=== PATIENT | female | born 1995 | race African-American/Black ===

== ENCOUNTER 2022-07-30 15:22 | Inpatient (IN) | payer OTHER, SELFPAY ==
--- NOTE | ~2022-07-30 | XR_ITS ---
EXAMINATION: XR HAND, RIGHT CLINICAL INFORMATION: Trauma to right hand COMPARISON: None available. TECHNIQUE: PA, lateral, and oblique views of the right hand. FINDINGS: The bones and soft tissues are normal. No fracture. Alignment is anatomic. Joint spaces are maintained. No erosions or soft tissue calcifications. XR/XR hand RT 2V IMPRESSION: Unremarkable right hand.
[2022-07-30 15:35] VITALS: BP 140/90; PULSE 110
[2022-07-30 15:42] VITALS: BP 116/83; PULSE 108; RESP 19; TEMP 36.8; O2SAT 98; BMI 19.5
[2022-07-30 16:14] LABS: Appearance Urine Cloudy; Color Urine Yellow; Glucose Urine UA Negative (Negative); Leukocyte Esterase Urine Negative (Negative); Nitrite Urine Negative (Negative); PH 5.5 (5.0-9.0); Specific Gravity - Urine >= 1.030 (1.005-1.025); Urine Blood Negative (Negative); Urine Ketones >=160 mg/dL (Negative); Urine Protein Trace mg/dL (Neg-Trace)
[2022-07-30 16:15] LABS: UPreg QC Valid YES; Urine Pregnancy NEGATIVE (NEGATIVE)
[2022-07-30 16:18] LABS: MANUAL DIFF FLAG NO
[2022-07-30 16:21] LABS: COVID-19 Test Negative (Negative); IDNOW Serial# BCCEAD1C
[2022-07-30 16:22] LABS: Basophils Percent Auto 0.4 % (0-2); Eosinophils Percent Auto 0.3 % (0-4); Hematocrit 39.9 % (37.0-47.0); Hemoglobin 12.8 g/dl (12.0-16.0); Imm Gran Abs Auto 0.01 X10*3/uL (0.00-0.03); Imm Gran Pct Auto 0.1 % (0.0-0.4); Lymphocytes Absolute Auto 2.6 X10*3/uL (1.2-4.9); Lymphocytes Percent Auto 36.2 % (20-40); Mean Corpuscular HGB Conc 32.1 g/dl (31.0-35.0); Mean Corpuscular Volume 78.1 fL (80.0-98.0); Mean Platelet Volume 9.7 fL (9.4-12.3); Monocytes Absolute Auto 0.6 X10*3/uL (0.1-1.2); Neutrophils Absolute Auto 3.9 x10*3/uL (2.0-8.3); Platelet Count 431 X10*3/uL (160-400); Red Blood Count 5.11 X10*6/uL (4.20-5.50); Red Cell Distribution Width 13.5 % (11.0-16.0); White Blood Count 7.1 X10*3/uL (4.8-10.8)
--- NOTE | 2022-07-30 16:22 | ED.PSYCH ---
HPI - Psych General Chief Complaint: Psychiatric Symptoms Stated Complaint: SI W/PLAN,SECTION 12 Time Seen by Provider: 07/30/22 16:20 Source: patient Mode of arrival: EMS Limitations: no limitations History of Present Illness HPI Narrative: Patient 26 yrs old with history of anxiety and depression seen outpatient clinic for SI section 12 now here for bed search patient quit her job said she would shoot herself or take a bunch of pills patient has a gun at home. history of depression anxiety but not taking any medication patient feel more depressed lately for last few months because of increased stress and separation from her son 7 years old, who lives in [place] Related Data Home Medications Medication Instructions Recorded Confirmed No Known Home Meds 07/30/22 07/30/22 Allergies Allergy/AdvReac Type Severity Reaction Status Date / Time No Known Allergies Allergy Verified 07/30/22 16:30 Review of Systems Review of Systems: Yes all other systems are reviewed and are negative [facility] Social History Social History Advance Directives: No Advance Directives Information Provided: No Physical Exam Vital Signs: Vital Signs: Last Vital Signs Temp 98.2 F 07/30/22 15:42 Pulse 108 H 07/30/22 15:42 Resp 19 07/30/22 15:42 BP 116/83 07/30/22 15:42 Pulse Ox 98 07/30/22 15:42 O2 Del Method 07/30/22 15:42 BMI result Body Mass Index 19.5 Appearance: Alert. Oriented X3. No acute distress. Eyes: PERRLA, No Nystagmus ENT: Pharynx normal. Oral Mucosa moist Neck: Normal inspection. Neck supple. CVS: Normal heart rate and rhythm. Pulses normal. Respiratory: No respiratory distress. Equal air entry bilateral, no wheezing/rales/rhonchi Abdomen: Soft and nontender. Bowel sounds are present, no mass palpable, no CVA tenderness Skin: Skin warm and dry. Normal skin color. Normal skin turgor. Extremities: No lower extremity edema. No calf tenderness psych: Depressed with SI no hallucination or delusion Neuro: Oriented X 3. No motor deficit. No sensory deficit.No cerebellar signs , cranial nerves II-XII intact Medications Administered Discontinued Medications Generic Name Dose Route Start Last Admin Trade Name Freq PRN Reason Stop Dose Admin Diphenhydramine HCl 50 mg 07/30/22 20:27 07/30/22 20:39 Diphenhydramine Hcl 25 Mg Capsule PO 07/30/22 20:28 50 mg ONCE ONE Administration Medical Decision Making Medical Decision Making [facility] Narrative: Patient major depression with SI seen by outpatient and plan for inpatient placement. Lab workup showed severe ketonuria. Patient has been eating and drinking in the ER will reinforce her to eat more carbohydrates, recheck UA in a.m. again Lab Data [facility] Lab Attestation statement: I reviewed the patient's lab results. 07/30/22 16:12 07/30/22 16:13 Labs: Lab Results 07/30/22 07/30/22 07/30/22 Range/Units 16:00 16:00 16:00 WBC (4.8-10.8) X10*3/uL RBC (4.20-5.50) X10*6/uL Hgb (12.0-16.0) g/dl Hct (37.0-47.0) % MCV (80.0-98.0) fL MCH (27.0-33.0) pg MCHC (31.0-35.0) g/dl RDW (11.0-16.0) % Plt Count (160-400) X10*3/uL MPV (9.4-12.3) fL Immature Gran % (Auto) (0.0-0.4) % Neut % (Auto) (45-73) % Lymph % (Auto) (20-40) % Norman % (Auto) (2-11) % Eos % (Auto) (0-4) % Baso % (Auto) (0-2) % Lymph # (Auto) (1.2-4.9) X10*3/uL Norman # (Auto) (0.1-1.2) X10*3/uL Eos # (Auto) (0.0-0.4) X10*3/uL Baso # (Auto) (0.0-0.2) X10*3/uL Abs Immat Gran (auto) (0.00-0.03) X10*3/uL Absolute Neuts (auto) (2.0-8.3) x10*3/uL Absolute Nucleated RBC (0.0-0.012) X10*3/uL Nucleated RBC % (auto) (0.0-0.2) /100WBC Sodium (135-145) mmol/L Potassium (3.3-5.1) mmol/L Chloride (96-108) mmol/L Carbon Dioxide (22-29) mmol/L Anion Gap (12-20) BUN (9-16) mg/dL Creatinine (0.5-1.4) mg/dL Estim Creat Clear Calc Estimated GFR Random Glucose (60-115) mg/dL Calcium (8.4-10.2) mg/dL Total Bilirubin (0.0-1.0) mg/dL AST (5-31) U/L ALT (0-31) U/L Alkaline Phosphatase (39-117) U/L Total Protein (6.5-8.0) g/dL Albumin (3.5-5.0) g/dL Urine Color Yellow Urine Appearance Cloudy Urine pH 5.5 (5.0-9.0) Ur Specific [place] >= 1.030 H (1.005-1.025) Urine Protein Trace (Neg-Trace) mg/dL Urine Glucose (UA) Negative (Negative) mg/dL Urine Ketones >=160 (Negative) mg/dL Urine Blood Negative (Negative) Urine Nitrite Negative (Negative) Ur Leukocyte Esterase Negative (Negative) Urine Test NEGATIVE (NEGATIVE) Urine Opiates Screen (Not Detect) Urine Fentanyl Screen (Not Detect) Ur Barbiturates Screen (Not Detect) Ur Phencyclidine Scrn (Not Detect) Ur Amphetamines Screen (Not Detect) U Benzodiazepines Scrn (Not Detect) Urine Cocaine Screen (Not Detect) U Marijuana (THC) Screen (Not Detect) Ethyl Alcohol mg/dL COVID-19 (MARISA) Negative (Negative) COVID-19 Clin Com See Note 07/30/22 07/30/22 07/30/22 Range/Units 16:00 16:12 16:13 WBC 7.1 (4.8-10.8) X10*3/uL RBC 5.11 (4.20-5.50) X10*6/uL Hgb 12.8 (12.0-16.0) g/dl Hct 39.9 (37.0-47.0) % MCV 78.1 L (80.0-98.0) fL MCH 25.0 L (27.0-33.0) pg MCHC 32.1 (31.0-35.0) g/dl RDW 13.5 (11.0-16.0) % Plt Count 431 H (160-400) X10*3/uL MPV 9.7 (9.4-12.3) fL Immature Gran % (Auto) 0.1 (0.0-0.4) % Neut % (Auto) 55.0 (45-73) % Lymph % (Auto) 36.2 (20-40) % Norman % (Auto) 8.0 (2-11) % Eos % (Auto) 0.3 (0-4) % Baso % (Auto) 0.4 (0-2) % Lymph # (Auto) 2.6 (1.2-4.9) X10*3/uL Norman # (Auto) 0.6 (0.1-1.2) X10*3/uL Eos # (Auto) 0.0 (0.0-0.4) X10*3/uL Baso # (Auto) 0.0 (0.0-0.2) X10*3/uL Abs Immat Gran (auto) 0.01 (0.00-0.03) X10*3/uL Absolute Neuts (auto) 3.9 (2.0-8.3) x10*3/uL Absolute Nucleated RBC 0.000 (0.0-0.012) X10*3/uL Nucleated RBC % (auto) 0.0 (0.0-0.2) /100WBC Sodium 140 (135-145) mmol/L Potassium 3.9 (3.3-5.1) mmol/L Chloride 106 (96-108) mmol/L Carbon Dioxide 23 (22-29) mmol/L Anion Gap 15 (12-20) BUN 8 L (9-16) mg/dL Creatinine 0.80 (0.5-1.4) mg/dL Estim Creat Clear Calc 93.7 Estimated GFR > 60 Random Glucose 94 (60-115) mg/dL Calcium 9.5 (8.4-10.2) mg/dL Total Bilirubin 0.3 (0.0-1.0) mg/dL AST 13 (5-31) U/L ALT 7 (0-31) U/L Alkaline Phosphatase 80 (39-117) U/L Total Protein 7.1 (6.5-8.0) g/dL Albumin 4.3 (3.5-5.0) g/dL Urine Color Urine Appearance Urine pH (5.0-9.0) Ur Specific [place] (1.005-1.025) Urine Protein (Neg-Trace) mg/dL Urine Glucose (UA) (Negative) mg/dL Urine Ketones (Negative) mg/dL Urine Blood (Negative) Urine Nitrite (Negative) Ur Leukocyte Esterase (Negative) Urine Test (NEGATIVE) Urine Opiates Screen Not Detected (Not Detect) Urine Fentanyl Screen Not Detected (Not Detect) Ur Barbiturates Screen Not Detected (Not Detect) Ur Phencyclidine Scrn Not Detected (Not Detect) Ur Amphetamines Screen Not Detected (Not Detect) U Benzodiazepines Scrn Not Detected (Not Detect) Urine Cocaine Screen Not Detected (Not Detect) U Marijuana (THC) Screen POSITIVE H (Not Detect) Ethyl Alcohol < 10 mg/dL COVID-19 ([facility]) (Negative) COVID-19 Clin Com Discharge Plan Discharge Clinical Impression: Depression, Suicidal ideation Patient Disposition: Still a Patient Prescriptions: No Action No Known Home Meds Interventions: [place]-Suicide Risk Severity Scale Last Done: 07/30/22 23:41
[2022-07-30 16:27] LABS: Amphetamine Screen Urine Not Detected (Not Detect); Barbiturates, Urine Not Detected (Not Detect); Benzodiazepines Screen Urine Not Detected (Not Detect); Cannabinoid Screen Urine POSITIVE (Not Detect); Cocaine Screen Urine Not Detected (Not Detect); Fentanyl, urine Not Detected (Not Detect); Opiate Screen Urine Not Detected (Not Detect); Phencyclidine Screen Urine Not Detected (Not Detect)
[2022-07-30 16:39] LABS: Alanine Aminotransferase 7 U/L (0-31); Albumin Level 4.3 g/dL (3.5-5.0); Alkaline Phosphatase 80 U/L (39-117); Anion Gap 15 (12-20); Aspartate Amino Transferase 13 U/L (5-31); Bilirubin Total 0.3 mg/dL (0.0-1.0); Blood Urea Nitrogen 8 mg/dL (9-16); Calcium 9.5 mg/dL (8.4-10.2); Carbon Dioxide 23 mmol/L (22-29); Chloride 106 mmol/L (96-108); Creatinine Clr Calc Pharmacy 93.7; Estimated Glomerular Filt Rate > 60; Ethanol < 10 mg/dL; Glucose Random 94 mg/dL (60-115); Potassium 3.9 mmol/L (3.3-5.1); Sodium 140 mmol/L (135-145); Total Protein 7.1 g/dL (6.5-8.0)
--- NOTE | 2022-07-30 18:50 | PC.NURSE ---
Pt calm and cooperative in ED, tearful on admission, expressing SI to RN.
[2022-07-30] MEDS: diphenhydrAMINE HCL 25 MG CAPSULE 50 MG PO (20:39)
[2022-07-31 05:57] VITALS: BP 113/71; PULSE 95; RESP 15; TEMP 36.3; O2SAT 98
--- NOTE | 2022-07-31 06:04 | PC.NURSE ---
Patient slept through the night, no distress observed/reported, Benadryl 50 mg PO administered at bedtime with + effect, med rec completed/currently not on any medication, UA repeat pending, disposition per [facility] from the community is section 12 inpatient bed search, behavior non concerning, VSS, will continue to monitor.
--- NOTE | 2022-07-31 09:14 | PC.NURSE ---
Patient ambulating in unit, showered this morning. Patient with no complaints at this time.
--- NOTE | 2022-07-31 09:45 | PC.NURSE ---
patient woke up and took shower this morning, calm and cooperative w/ care. now back to room and sleeping.
[2022-07-31 10:39] LABS: Appearance Urine Cloudy; Color Urine Yellow; Glucose Urine UA Negative (Negative); Leukocyte Esterase Urine Negative (Negative); Nitrite Urine Negative (Negative); PH 7.5 (5.0-9.0); Specific Gravity - Urine 1.025 (1.005-1.025); Urine Blood Negative (Negative); Urine Ketones 15 mg/dL (Negative); Urine Protein Trace mg/dL (Neg-Trace)
[2022-07-31 20:04] VITALS: BP 115/87; PULSE 100; RESP 18; TEMP 36.9; O2SAT 98
[2022-07-31] MEDS: LORazepam 1 MG TABLET 2 MG PO (21:51)
[2022-07-31] MEDS: OLANZapine 5 MG TABLET PO (21:51)
[2022-08-01 06:35] VITALS: RESP 16
--- NOTE | 2022-08-01 06:49 | PC.NURSE ---
Patient was found slapping the wall, restless/agitated, provider notified/ordered Ativan 2 mg PO and Olanzapine 5 mg PO at 2151 with + effect, patient slept through the night, no distress observed/reported, deposition per N is section 12 inpatient bed search, behavior non concerning, will continue to monitor.
[2022-08-01 19:06] VITALS: BP 116/80; PULSE 115; RESP 20; TEMP 36.6; O2SAT 98
[2022-08-01] MEDS: OLANZapine 2.5 MG TABLET PO (21:27)
[2022-08-01 23:45] VITALS: BP 124/62; PULSE 68; RESP 17; TEMP 36.7; O2SAT 97
--- NOTE | 2022-08-02 08:57 | PC.NURSE ---
patient refused breakfast. laying in bed. no signs of distress notes. cooperative with staff. will CTM
[2022-08-02 09:00] VITALS: BP 110/68; PULSE 91; RESP 16; TEMP 36.3; O2SAT 98
--- NOTE | 2022-08-02 15:31 | PC.NURSE ---
patient awake, cooperative and polite with staff. mom at the bedside visiting. gait steady. will CTM
[2022-08-02 18:00] VITALS: BP 125/69; PULSE 100; TEMP 36.2; O2SAT 97
[2022-08-02] MEDS: traZODone HCL 50 MG TABLET PO ×2 (22:09→23:35)
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
--- NOTE | 2022-08-03 09:00 | ECG_ITS ---
Test Reason : ck rhythm Blood Pressure : / mmHG Vent. Rate : 128 BPM Atrial Rate : 128 BPM P-R Int : 126 ms QRS Dur : 074 ms QT Int : 328 ms P-R-T Axes : 076 009 041 degrees QTc Int : 478 ms Sinus tachycardia Otherwise normal ECG No previous ECGs available Referred By: Amena Abad Electronically Signed By:Saúl Brush
[2022-08-03 10:21] VITALS: BP 116/74; PULSE 136; RESP 20; O2SAT 98
[2022-08-03] MEDS: hydrOXYzine HCL 25 MG TABLET PO (10:24)
--- NOTE | 2022-08-03 13:28 | MHC.CLN ---
NUTRITION CONSULT FOR WEIGHT LOSS. REPORTS USUAL WEIGHT IS ABOUT 150#. CURRENT WEIGHT IS 125#. REPORTS WEIGHT LOSS X A FEW WEEKS. ATTRIBUTES WEIGHT LOSS TO DECREASED APPETITE DUE TO STRESS. WILL EAT FRUITS AND FRUIT JUICE. ENCOURAGED TO CONTINUE TO SELECT MEALS THAT USUALLY LIKES. PATIENT AGREES TO ENSURE BID. PROVIDES 700 KCALS, 40 G PROTEIN.
[2022-08-03 16:00] VITALS: BP 116/72; PULSE 104; TEMP 36.5; O2SAT 97
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
[2022-08-03] MEDS: OXcarbazepine 300 MG TABLET PO (21:34)
[2022-08-03] MEDS: QUEtiapine Fumarate 50 MG TABLET PO (21:34)
[2022-08-04] MEDS: OXcarbazepine 300 MG TABLET PO ×2 (08:55→20:22)
[2022-08-04 09:15] VITALS: BP 117/59; PULSE 98; RESP 18; TEMP 36.6; O2SAT 98
[2022-08-04 18:00] VITALS: BP 122/77; PULSE 116; RESP 16; TEMP 36.6; O2SAT 99
--- NOTE | 2022-08-04 18:38 | P.PNPSI_ITS ---
Subjective Subjective Date of Service: 08/04/22 Reason For Visit: Depression, Si Subjective Notes: Conditional Voluntary Interim History: Family meeting with parents who are very supportive and Liborio BIRD. Discussion of current issues, work schedule, parenting, FMLA, [facility] referral. Pt reports she is tolerating medications, slept last night, denies SI and is feeling improved. Medication Compliance: Yes Side effects from medications: No Attending Groups: Yes Review of Systems Acute medical concerns: No Medical Review of Systems: unchanged Mental Status Exam Mental Status Exam Patient Appearance: Appropriate Patient Orientation: Person, Place, Time and Situation Level of Consciousness: Alert Patient Behavior: Appropriate, Talkative, Cooperative and Good Eye Contact Mood Description: Depressed Affect Description: Flat Patient Cognition Impaired: No Ability to Follow Directions: Good Speech Pattern: Spontaneous Speech Memory Description: Intact Hallucinations: None Delusions: Not Present Perceptual Disturbances: Depersonalization Thought Process: Rumination Thought Content: positive for Circumstantial and positive for Perseveration Depressive Symptoms: Increased Anxiety, Diff. Making Decisions, Isolating- Friends/Family, Feelings of Guilt, Unhappiness, Increased Fatigue, Low Self Esteem and Difficulty Concentrating Judgement: Good Diagnostics Vital Signs (24Hr): Vital Signs - 24 hr 08/04/22 09:15 Temperature 98 F Pulse Rate 98 Respiratory Rate 18 Blood Pressure 117/59 L Pulse Oximetry 98 Oxygen Delivery Method Room Air BMI result Body Mass Index 19.5 Labs 07/30/22 16:12 07/30/22 16:13 Medications Medications Current Medications Acetaminophen (Acetaminophen 325 Mg Tablet) 650 mg PO Q6H PRN PRN Reason: Headache/Pain Mild Scale (1-3) Al Hydroxide/Mg Hydroxide (Magnesium Hydrox/Alum Hydrox 30 Ml Oral.Susp) 30 ml PO Q6H PRN PRN Reason: Heartburn/Nausea Hydroxyzine HCl (Hydroxyzine Hcl 25 Mg Tablet) 25 mg PO Q6H PRN PRN Reason: Anxiety Last Admin: 08/03/22 10:24 Dose: 25 mg Magnesium Hydroxide (Milk Of Magnesia 30 Ml Oral.Susp) 30 ml PO DAILY PRN PRN Reason: Constipation Oxcarbazepine (Oxcarbazepine 300 Mg Tablet) 300 mg PO BID [facility] Last Admin: 08/04/22 08:55 Dose: 300 mg Quetiapine Fumarate (Quetiapine Fumarate 50 Mg Tablet) 50 mg PO BEDTIME [facility] Last Admin: 08/03/22 21:34 Dose: 50 mg Trazodone HCl (Trazodone Hcl 50 Mg Tablet) 50 mg PO BEDTIME MRX1 PRN PRN Reason: Insomnia Last Admin: 08/02/22 23:35 Dose: 50 mg Allergies Allergies Allergy/AdvReac Type Severity Reaction Status Date / Time No Known Allergies Allergy Verified 07/30/22 16:30 Assessment & Plan Assessment & Plan (1) Depression: Status: Acute Code(s): F32.A - Depression, unspecified (2) Suicidal ideation: Status: Acute Code(s): R45.851 - Suicidal ideations (3) PTSD (post-traumatic stress disorder): Status: Acute Code(s): F43.10 - Post-traumatic stress disorder, unspecified Plan 26 yo female, hx of depression, PTSD, depression ~ 8 years ago, with several stressors including separation from her son who lives in [place], working 80+ hours per week with one day off, loss of relationship, loss of aunt whom she cared for in terminal illness and loss of dog due to behavior. By history, antidepressants have caused increase in symptoms and SI. Plan: Trileptal 300 mg bid trial 08/04/22 Continue current regime Tentative discharge for 08/06/22. Pt reports improvement, family is a good solid support for pt. Patient educated on: therapeutic strategies Guardian/Caregiver educated on: therapeutic strategies Informed Consent: understands Reason for contiued inpatient stay Substantial Risk for: harm to self Time Spent With Patient Time: Total time managing care of this patient today ____ minutes.
[2022-08-04] MEDS: QUEtiapine Fumarate 50 MG TABLET PO (20:23)
[2022-08-05 07:00] VITALS: BMI 22.6
[2022-08-05] MEDS: OXcarbazepine 300 MG TABLET PO ×2 (08:26→21:41)
[2022-08-05 09:06] VITALS: BP 112/74; PULSE 132; RESP 18; TEMP 36.6; O2SAT 99
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
[2022-08-05 18:00] VITALS: BP 124/76; PULSE 69; RESP 16; TEMP 35.9; O2SAT 98
[2022-08-05] MEDS: hydrOXYzine HCL 25 MG TABLET PO (19:18)
[2022-08-05] MEDS: QUEtiapine Fumarate 50 MG TABLET PO (21:41)
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
[2022-08-06] MEDS: OXcarbazepine 300 MG TABLET PO (08:47)
[2022-08-06 09:05] VITALS: BP 122/81; PULSE 128; RESP 18; TEMP 36.2; O2SAT 98
--- NOTE | 2022-08-06 10:34 | P.DS_ITS ---
DS: Providers Provider Date of Service: 08/06/22 Date of admission: 08/02/22 16:19 Date of discharge: 08/06/22 Primary care physician: Shannon Ocampo NP Admitting clinician: Amena Abad Attending physician on admission: Hammad Schuster Attending physician on discharge: Hammad Schuster Discharging clinician: Amena Abad DS: Diagnosis Discharge Diagnosis (1) Depression: Status: Acute (2) Suicidal ideation: Status: Resolved (3) PTSD (post-traumatic stress disorder): Status: Acute DS: Medications Discharge Medications Home Medications: Previous Rx's Medication Instructions Recorded oxcarbazepine 300 mg tablet 300 mg PO BID #60 tabs 08/05/22 quetiapine 50 mg tablet 50 mg PO BEDTIME #30 tabs 08/05/22 Mental Status Exam Mental Status Exam Patient Appearance: Appropriate Patient Orientation: Person, Place, Time and Situation Level of Consciousness: Alert Patient Behavior: Appropriate, Talkative, Cooperative and Good Eye Contact Mood Description: Depressed Affect Description: Flat Patient Cognition Impaired: No Ability to Follow Directions: Good Speech Pattern: Spontaneous Speech Memory Description: Intact Hallucinations: None Delusions: Not Present Perceptual Disturbances: Depersonalization Thought Process: Rumination Thought Content: positive for Circumstantial and positive for Perseveration Depressive Symptoms: Increased Anxiety, Diff. Making Decisions, Isolating- Friends/Family, Feelings of Guilt, Unhappiness, Increased Fatigue, Low Self Esteem and Difficulty Concentrating Judgement: Good Data Data Completed and Pending Completed studies during hospitalization [Text1]: 07/30/22 07/30/22 07/30/22 16:00 16:00 16:00 WBC RBC Hgb Hct MCV MCH MCHC RDW Plt Count MPV Immature Gran % (Auto) Neut % (Auto) Lymph % (Auto) Swisher % (Auto) Eos % (Auto) Baso % (Auto) Lymph # (Auto) Swisher # (Auto) Eos # (Auto) Baso # (Auto) Abs Immat Gran (auto) Absolute Neuts (auto) Absolute Nucleated RBC Nucleated RBC % (auto) Sodium Potassium Chloride Carbon Dioxide Anion Gap BUN Creatinine Estim Creat Clear Calc Estimated GFR Random Glucose Calcium Total Bilirubin AST ALT Alkaline Phosphatase Total Protein Albumin Urine Color Yellow Urine Appearance Cloudy Urine pH 5.5 Ur Specific [place] >= 1.030 H Urine Protein Trace Urine Glucose (UA) Negative Urine Ketones >=160 Urine Blood Negative Urine Nitrite Negative Ur Leukocyte Esterase Negative Urine Test NEGATIVE Urine Opiates Screen Urine Fentanyl Screen Ur Barbiturates Screen Ur Phencyclidine Scrn Ur Amphetamines Screen U Benzodiazepines Scrn Urine Cocaine Screen U Marijuana (THC) Screen Ethyl Alcohol COVID-19 (MARISA) Negative COVID-19 Clin Com See Note 07/30/22 07/30/22 07/30/22 16:00 16:12 16:13 WBC 7.1 RBC 5.11 Hgb 12.8 Hct 39.9 MCV 78.1 L MCH 25.0 L MCHC 32.1 RDW 13.5 Plt Count 431 H MPV 9.7 Immature Gran % (Auto) 0.1 Neut % (Auto) 55.0 Lymph % (Auto) 36.2 Swisher % (Auto) 8.0 Eos % (Auto) 0.3 Baso % (Auto) 0.4 Lymph # (Auto) 2.6 Swisher # (Auto) 0.6 Eos # (Auto) 0.0 Baso # (Auto) 0.0 Abs Immat Gran (auto) 0.01 Absolute Neuts (auto) 3.9 Absolute Nucleated RBC 0.000 Nucleated RBC % (auto) 0.0 Sodium 140 Potassium 3.9 Chloride 106 Carbon Dioxide 23 Anion Gap 15 BUN 8 L Creatinine 0.80 Estim Creat Clear Calc 93.7 Estimated GFR > 60 Random Glucose 94 Calcium 9.5 Total Bilirubin 0.3 AST 13 ALT 7 Alkaline Phosphatase 80 Total Protein 7.1 Albumin 4.3 Urine Color Urine Appearance Urine pH Ur Specific [place] Urine Protein Urine Glucose (UA) Urine Ketones Urine Blood Urine Nitrite Ur Leukocyte Esterase Urine Test Urine Opiates Screen Not Detected Urine Fentanyl Screen Not Detected Ur Barbiturates Screen Not Detected Ur Phencyclidine Scrn Not Detected Ur Amphetamines Screen Not Detected U Benzodiazepines Scrn Not Detected Urine Cocaine Screen Not Detected U Marijuana (THC) Screen POSITIVE H Ethyl Alcohol < 10 COVID-19 (MARISA) COVID-19 Clin Com 07/31/22 10:33 WBC RBC Hgb Hct MCV MCH MCHC RDW Plt Count MPV Immature Gran % (Auto) Neut % (Auto) Lymph % (Auto) Swisher % (Auto) Eos % (Auto) Baso % (Auto) Lymph # (Auto) Swisher # (Auto) Eos # (Auto) Baso # (Auto) Abs Immat Gran (auto) Absolute Neuts (auto) Absolute Nucleated RBC Nucleated RBC % (auto) Sodium Potassium Chloride Carbon Dioxide Anion Gap BUN Creatinine Estim Creat Clear Calc Estimated GFR Random Glucose Calcium Total Bilirubin AST ALT Alkaline Phosphatase Total Protein Albumin Urine Color Yellow Urine Appearance Cloudy Urine pH 7.5 Ur Specific [place] 1.025 Urine Protein Trace Urine Glucose (UA) Negative Urine Ketones 15 Urine Blood Negative Urine Nitrite Negative Ur Leukocyte Esterase Negative Urine Test Urine Opiates Screen Urine Fentanyl Screen Ur Barbiturates Screen Ur Phencyclidine Scrn Ur Amphetamines Screen U Benzodiazepines Scrn Urine Cocaine Screen U Marijuana (THC) Screen Ethyl Alcohol COVID-19 (MARISA) COVID-19 Clin Com Imaging Diagnostic Imaging Impressions Hand X-Ray 08/05/22 19:59 IMPRESSION: Unremarkable right hand. DS: Summary Hospital Course Hospital Course: Admission to adult psychiatry for exacerbation of PTSD and severe recurrent major depression. Shalom reported, by history, adverse responses to antidepressants. A regime of Trileptal and Seroquel were initiated, tolerated and effective. Family meeting was held with Shalom and her parents. Currently, she is working over eighty hours per week at two jobs. Her son is in [place] and she is experiencing separation anxiety and resulting hopelessness. She is invested in her profession, however, currently finds everything is out of balance and it is having effects upon her health. She will discharge, spend some time with her son and attend partial hospital program to do more group work on balancing her life and responsibilities. Time spent discussing smoking cessation with patient: 3 to 10 minutes Status at Discharge Functional status at discharge: independent ambulation Overall status at discharge: patient is progressing back to baseline Time Spent with Patient Time attestation: Total time managing care of this patient today ____ minutes. Time spent: Greater than 30 minutes Discharge Plan Discharge Anticipated Discharge Date/Time: 08/06/22 12:00 Patient Disposition: Home, Self-Care Discharge Diagnosis: PTSD Recurrent Major Depression, Severe Referrals: Lisette Hung: [facility] [Other] - 08/11/22 1:00 pm (Initial Diagnostic Evaluation for Therapy Appointment in Office at [facility]) Salima Lindsay: [facility] [Other] - 09/08/22 1:00 pm (Initial Psychiatric Evaluation for Medication Management Appointment is by tele-health. Please Check your email for a link to the appointment ) Salima Lindsay: [facility] [Other] - 10/11/22 12:00 pm (Medication Management Appointment Appointment is by tele-health please check your email for a link to the appointment.) [facility]: Partial Hospitalization Program(PHP) [Other] - 1 Week (Patient referred to Partial Hospitalization Program Program to follow-up on referral with intake date after discharge. Should you not hear from PHP program Please follow-up with them to gain intake appointment.) [facility] [Other] - 1 Week (Referral to [facility] You should follow-up on referral after discharge ) Shannon Ocampo NP [Primary Care Provider] - 08/06/22 3:30 pm (in office) Discharge Medications: New quetiapine [Seroquel] 25 mg tablet 25 mg PO BEDTIME Qty: 30 0RF Rx Instructions: 75 mg bedtime oxcarbazepine [Trileptal] 600 mg tablet 600 mg PO BID Qty: 60 0RF No Action quetiapine 50 mg tablet extended release 24 hr 50 mg PO BEDTIME Qty: 14 0RF Rx Instructions: Take with quetiapine 25mg tab, for total bedtime dose 75mg Discharge Orders: Discharge Order (Routine); Ordered 08/06/22 Ordered By: Amena Abad Diet: Advance to usual diet Activity on Discharge: As tolerated Stand Alone Forms: Patient Portal Discharge page, Community Support Care Plan Goals: Mood and Behavioral Stabilization Health Concerns: Mood and Behavioral Stabilization Plan of Treatment: Follow up with scheduled providers Take medications as directed Call and or return as needed A referral has been made to [facility]. They will call you for an appointment. Assessment: Non suicidal, non homicidal, non manic, non psychotic Discharge Date/Time: 08/06/22 10:36
--- NOTE | 2022-08-19 09:21 | P.EN_ITS ---
Event Note Date of Service: 08/19/22 Event Note: Medications / Symptoms discussed with pt on 08/11/22. Seroquel increased to 75 mg bid, Trileptal increased to 600 mg bid. Pt called on 08/10. She is in [place] visiting her son. Reported an increase in sadness, depression, inability to sleep, BERRY. Denies SI, plan or intent. She will return to [place] this week. Discussed with pt return to hospital as by history she has had adverse responses to antidepressants and may need more supervision- She is scheduled for PHP and this environment may be helpful to make changes and monitor. Pt will consider and call when she returns to the area. Time Spent With Patient Time: Total time managing care of this patient today ____ minutes.
== END 2022-08-06 10:36 | disposition home or self-care (01) | DRG 754 ==
LOC: HO.ED 07-31 01:14 → HO.PM5 08-02 16:29
PROVIDERS: Admitting Provider Psychiatry & Neurology Psychiatry; Emergency Provider Internal Medicine; PCP Nurse Practitioner Adult Health; Visit Provider Clinical Nurse Specialist Psychiatric/Mental Health, Adult
DX: F32.A Depression, unspecified (principal); R45.851 Suicidal ideations; F43.10 Post-traumatic stress disorder, unspecified; Z20.822 Contact with and (suspected) exposure to COVID-19; Z79.899 Other long term (current) drug therapy
CPT/HCPCS: 36415; 73120; 80053; 80307; 81003; 81025; 82077; 85025; 87635; 93005; 99285; S9485

== ENCOUNTER 2022-09-24 13:00 | Outpatient (RCR) | payer OTHER, SELFPAY ==
[2022-08-27 10:37] VITALS: BP 92/60; PULSE 88; TEMP 36.7
[2022-08-27 10:42] VITALS: BMI 23.3
--- NOTE | 2022-08-27 11:35 | PC.ADMIT ---
Patient is a 27 year old single female who was [place] [facility] [place] where she was admitted d/t severe depression and plans to end her life via overdose or a gunshot wound and took a week to plan this. Patient reportedly emailed her father of her plans and thus she was sectioned to the hospital. Patient reports work stressors working 2 jobs 80 hours a week and stresses regarding the father of her son who lives in [place] along with her son. In addition, patient reported family losses. Patent is alert and oriented x4. Calm and cooperative. Presented with depressed mood and affect. When asked if she was having any SI she stated, Here and there suicidal thoughts to end it , however denied any plans or intent to kill herself . I asked her if her environment was safe and she stated it was as her father has her gun. She stated her father is very supportive. She stated she has support from her parents, grandmother, and a friend. Feeling less pressure since she is taking a leave of absence from work to work on her mental health. Denied any financial problems. She stated her son has been staying with her and she bringing him back to [place] today. She reported that she is happy that he spend some time with her and the plan is for her son to live with her permanently starting over the summer when he is finished with school. She is also, excited to have her son come and live with her. Patient given a copy of her safety plan if needed. I reviewed her safety plan with her. Medications reconciled with patient and [facility] [place]. Patient reports she is taking Seroquel however stopped Trileptal a week ago and she felt she was taking too many medications. Patient did state she noticed her mood goes up and down. Educated patient about the importance of taking medications as prescribed. Leonor Lucio CNP is aware and will talk to patient about restarting the medication.
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
--- NOTE | 2022-09-03 10:06 | HO.PHPPROGNO ---
Subjective Subjective Date of Service: 09/03/22 Reason For Visit: depression Medical Problems Affecting Mental Status: No Interim History: More depressed. Feels tired . States 'I just want it to all go away . SI with plan to overdose on meds, no intent. Says feels safe. Poor appetite, poor sleep. Willing to consider Respite, does not want to go inpatient. Medication Compliance: Intermittent (Has been taking Trileptal 300 b.i.d., not 600mg bid as ordered. ) Side effects from medications: No Attending Groups: Yes Review of Systems Acute medical concerns: No Medical Review of Systems: unchanged Review of Systems Review of Systems Yes all other systems are reviewed and are negative Constitutional: Reports no additional constitutional complaints Mental Status Exam Mental Status Exam Narrative: NAD Patient Appearance: Appropriate Patient Orientation: Person, Place, Time and Situation Level of Consciousness: Appropriate Patient Behavior: Appropriate, Cooperative and Good Eye Contact Mood Description: Depressed Affect Description: Depressed and Flat Patient Cognition Impaired: No Ability to Follow Directions: Excellent Speech Pattern: Clear Memory Description: Intact Hallucinations: None Delusions: Not Present Thought Process: Intact Thought Content: positive for Suicidal Ideation (Plan to overdose on meds, no intention) Depressive Symptoms: Increased Anxiety, Difficulty Sleeping, Crying Spells, Loss of Int. in Activity, Hopelessness, Isolating-Friends/Family, Unhappiness, Increased Fatigue, Thoughts of /Suicide, Low Self Esteem, Loss of Energy and Difficulty Concentrating Judgement: Fair Diagnostics Vital Signs (24Hr): BMI result Body Mass Index 23.3 Assessment & Plan Assessment & Plan (1) Depression: Status: Acute Code(s): F32.A - Depression, unspecified Assessment and Plan: More depressed. Feels tired . States 'I just want it to all go away . SI with plan to overdose on meds, no intent. Says feels safe. Poor appetite, poor sleep. Willing to consider Respite, does not want to go inpatient. States that she feels it was overwhelming when she was inpatient, but does acknowledge that her symptoms of depression have been worsening over past few days. We discussed current meds. She has resumed Trileptal, but has only been taking 300 mg b.i.d.. Reviewed prescription, it is ordered 600 mg b.i.d.. She states she will start taking the higher dose today. Discussed increasing quetiapine. Currently takes 75 mg at bedtime. Patient has supply of 50 mg regular release, as well as extended release at home. Patient will increase dose tonight with 50 mg regular release, along with 50 mg extended release, for total daily dose 100 mg at bedtime. (2) PTSD (post-traumatic stress disorder): Status: Acute Code(s): F43.10 - Post-traumatic stress disorder, unspecified Plan 1. Continue with current [facility] plan of care. 2. Patient to consider possible respite stay. 3. Increase quetiapine to 50 mg at bedtime along with 50 mg extended release, for total bedtime dose of 100 mg. 4. Patient to begin taking Trileptal 600 mg b.i.d.. 5. Follow-up as per protocol. Patient educated on: diagnosis, medication risk/benefits and therapeutic strategies Informed Consent: understands Reason for contiued partial hosp. stay Substantial Risk for: harm to self, inability to function and rapid decompensation Certification I certify that partial hospital treatment is medically necessary due to the symptoms and problems resulting from the patient's mental illness and the failure to treat the patient at the partial hospital level of care would likely result in the patient requiring inpatient psychiatric care which could not be prevented at a less intensive level of care. Total time managing care of this patient today __30__ minutes. Discharge Plan Discharge Attending provider: Raj Michaud Medications: New quetiapine 50 mg tablet extended release 24 hr 50 mg PO BEDTIME Qty: 14 0RF Rx Instructions: Take with quetiapine 25mg tab, for total bedtime dose 75mg Discontinued quetiapine 50 mg Tablet 50 mg PO BEDTIME Qty: 30 0RF No Action quetiapine [Seroquel] 25 mg tablet 25 mg PO BEDTIME Qty: 30 0RF Rx Instructions: 75 mg bedtime oxcarbazepine [Trileptal] 600 mg tablet 600 mg PO BID Qty: 60 0RF Stand Alone Forms: Patient Portal Discharge page
--- NOTE | 2022-09-03 10:47 | HO.PHP ---
I met with the client to assess safety . She reports that she does have suicidal thoughts although no intent. We discussed a possible respite admission which she will consider but does not want to go today. She states that she will be safe this weekend and is going to talk with her family. She has the numbers for crisis if needed.
--- NOTE | 2022-09-10 16:17 | HO.PHP ---
At 2:00 pm on 09/10/2022, teletypewriter operator met with Pt to assess for safety as a result of comments made by Pt during group concerning thoughts she has at night of ending it and statements made while crying, saying she can't do it anymore when talking about living with her trauma. During the meeting pt was tearful, stated she felt tired of trying to feel better . Lacking motivation, isolating and loss of interest has not improved since beginning PHP. Pt stated she did not have a plan or intent to commit suicide but reported thoughts the 'other night' that if she did do it no one would find me, not one would care . Pt stated those thoughts occurred at night and were more intense then usual but they did not occur like that all the time. When asked if she felt she should be assessed for inpatient, and if feeling unsafe to go home, pt stated she did not want to go inpatient and stated had been assessed by crisis recently but did not want to go then either. Pt stated she did not want to return to , but would be open to inpatient elsewhere if her symptoms increase. Pt contracted verbally with teletypewriter operator to either call crisis or go [facility] for assessment for inpatient. Pt agreed. Pt and teletypewriter operator discussed coping tools and CBT exercise to help with negative thoughts at night to implement this weekend. Pt also identified her father and a best friend who lives upstairs from her, as supports she will reach out to if symptoms increase as well. Pt denied feeling unsafe to go home, agreed to return Tuesday. Cnc Supervisor or other [facility] staff to follow up with Pt on Tuesday.
--- NOTE | 2022-09-13 12:13 | HO.PHPPROGNO ---
Subjective Subjective Date of Service: 09/13/22 Reason For Visit: depression Medical Problems Affecting Mental Status: No Interim History: Describes mood as ?a roller coaster ?, with some mood swings. No SI today, reports that she did have SI last week with plan but no intent. States that she feels safe today. States some groups have brought up past childhood trauma to the surface, not sure she wants to discuss this in group setting. Crying at times. 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 Taking medication as prescribed. Medication Compliance: Yes Side effects from medications: No Attending Groups: Yes Review of Systems Acute medical concerns: No Medical Review of Systems: unchanged Review of Systems Review of Systems Yes all other systems are reviewed and are negative Constitutional: Reports no additional constitutional complaints Mental Status Exam Mental Status Exam Narrative: NAD Patient Appearance: Appropriate Patient Orientation: Person, Place, Time and Situation Level of Consciousness: Appropriate Patient Behavior: Appropriate, Cooperative and Good Eye Contact Mood Description: Depressed, Labile and Angry Affect Description: Depressed, Anxious and Labile Patient Cognition Impaired: No Ability to Follow Directions: Excellent Speech Pattern: Clear Memory Description: Intact Hallucinations: None Delusions: Not Present Thought Process: Intact Thought Content: positive for Suicidal Ideation (Denies SI today, reports was suicidal last week with plan, no intent) Depressive Symptoms: Increased Anxiety, Increased Irritability, Difficulty Sleeping, Crying Spells, Loss of Int. in Activity, Isolating-Friends/Family, Unhappiness, Increased Fatigue, Thoughts of /Suicide, Loss of Energy and Difficulty Concentrating Judgement: Fair Diagnostics Vital Signs (24Hr): BMI result Body Mass Index 23.3 Assessment & Plan Assessment & Plan (1) Depression: Status: Acute Code(s): F32.A - Depression, unspecified Assessment and Plan: Describes mood as ?a roller coaster ?, with some mood swings. No SI today, reports that she did have SI last week with plan but no intent. States that she feels safe today. States some groups have brought up past childhood trauma to the surface, not sure she wants to discuss this in group setting. Crying at times. 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 Taking medication as prescribed. Reports some difficulty with sleep, has been taking the increased dose of quetiapine, still wakes early in the a.m.. We discussed stopping both the quetiapine 50mg extended release and the 25mg immediate release, and switching to 100 mg quetiapine at bedtime extended release. She was in agreement with this plan. Reports that she has been taking the trileptal 600 mg b.i.d.. Feels that she still has some mood lability. Discussed this in detail, also discussed how increased dose of quetiapine may help with further mood stabilization and lower anxiety. She has also not been at this dose for very long, and encouraged to continue with the medications. Also discussed possibility that she may need another mood stabilizer rather than trileptal going forward, and that she may need to explore this with her outpatient provider. (2) PTSD (post-traumatic stress disorder): Status: Acute Code(s): F43.10 - Post-traumatic stress disorder, unspecified Plan 1. Continue with current [facility] plan of care. 2. Increase quetiapine to 100 mg extended release at bedtime. 3. Continue other medications as currently prescribed. 4. Follow-up as per protocol. Patient educated on: diagnosis, medication risk/benefits and therapeutic strategies Informed Consent: understands Reason for contiued partial hosp. stay Substantial Risk for: harm to self, inability to function and rapid decompensation Certification I certify that partial hospital treatment is medically necessary due to the symptoms and problems resulting from the patient's mental illness and the failure to treat the patient at the partial hospital level of care would likely result in the patient requiring inpatient psychiatric care which could not be prevented at a less intensive level of care. Total time managing care of this patient today __20__ minutes. Discharge Plan Discharge Attending provider: Raj Michaud Medications: New quetiapine 50 mg tablet extended release 24 hr 100 mg PO BEDTIME Qty: 30 0RF Discontinued quetiapine 50 mg Tablet 50 mg PO BEDTIME Qty: 30 0RF quetiapine [Seroquel] 25 mg tablet 25 mg PO BEDTIME Qty: 30 0RF Rx Instructions: 75 mg bedtime No Action oxcarbazepine [Trileptal] 600 mg tablet 600 mg PO BID Qty: 60 0RF Stand Alone Forms: Patient Portal Discharge page
--- NOTE | 2022-09-14 14:25 | HO.PHP ---
I called Shalom after she had called and left a message that she didn't sleep and was going back to bed . I called her and she states that she is safe just very tired from not sleeping. She states that she will be in tomorrow.
--- NOTE | 2022-09-17 11:34 | PC.NURSE ---
Elizabeth did not show up to the program this morning. Staff called patient and patient not answering her phone. Staff reached out to her emergency contact who was not able to contact her. Wellness check requested from the police as a result per protocol. [facility] staff all aware.
--- NOTE | 2022-09-17 14:11 | HO.PHP ---
I called Elan to check in . She states that she is okay just tired and that she will be safe this weekend and will come to [facility] Tuesday.
--- NOTE | 2022-09-21 10:09 | P.PNPSP_ITS ---
Subjective Subjective Date of Service: 09/21/22 Reason For Visit: depression Medical Problems Affecting Mental Status: No Interim History: Continues with dysphoric mood, although lessened somewhat. Intermittent passive SI, no intent/plan, feels safe. conflicted about work, not sure if she will return. Continues with sleep difficulties, and morning groggy feeling . Medication Compliance: Yes Side effects from medications: Yes (sedation in am, difficulty with falling asleep) Attending Groups: Yes Review of Systems Acute medical concerns: No Medical Review of Systems: unchanged Review of Systems Review of Systems Yes all other systems are reviewed and are negative Constitutional: Reports no additional constitutional complaints Mental Status Exam Mental Status Exam Narrative: NAD Patient Appearance: Well Grooomed Patient Orientation: Person, Place, Time and Situation Level of Consciousness: Appropriate Patient Behavior: Appropriate, Cooperative and Good Eye Contact Mood Description: Depressed (slightly improved) Affect Description: Depressed and Anxious Patient Cognition Impaired: No Ability to Follow Directions: Excellent Speech Pattern: Clear Memory Description: Intact Hallucinations: None Delusions: Not Present Thought Process: Intact Thought Content: positive for Suicidal Ideation (intermittent passive, none reported today) Depressive Symptoms: Increased Anxiety, Increased Irritability, Difficulty Sleeping, Loss of Int. in Activity, Isolating-Friends/Family, Unhappiness, Increased Fatigue, Thoughts of /Suicide and Difficulty Concentrating Judgement: Fair Diagnostics Vital Signs (24Hr): BMI result Body Mass Index 23.3 Assessment & Plan Assessment & Plan (1) Depression: Status: Acute Code(s): F32.A - Depression, unspecified Assessment and Plan: Continues with depressed mood although slightly improved. Intermittent passive SI. Overwhelmed with thoughts of returning to work due to high stress environment. Also feels uncomfortable due to a platform supervisor's HIPAA violation with a client, within texted her about it. Poor sleep continues. Taking a increased dose of Seroquel extended release, t rying to take it earlier at night. Sometimes is groggy in the morning, specially of taking the morning dose of Trileptal. We discussed trialing the dose of Seroquel little earlier in the evening, and taking all of the Trileptal at bedtime rather than having a morning dose. She was in agreement with this. Plan is for discharge from [facility] tomorrow. States that she does feel safe, but would prefer going to another program such as day treatment, or some other form of treatment. She has outpatient provider, has not yet met with person. Discussed possibility of adding an antidepressant as outpatient, as it may help with the depression symptoms, and now that she has several mood stabilizers in place. Discussed doing this as outpatient rather than here, as she has only 1 more day here, and a risk of activating bipolar symptoms. She expressed her understanding, and will request this when she meets with her new provider. (2) PTSD (post-traumatic stress disorder): Status: Acute Code(s): F43.10 - Post-traumatic stress disorder, unspecified Plan 1. Continue with current PHP plan of care. 2. Patient is scheduled to complete PHP tomorrow. 3. Patient will trial Seroquel dose earlier in evening. 4. Patient will switch timing of Trileptal to full day's dose at bedtime rather than b.i.d.. Patient educated on: diagnosis, medication risk/benefits and therapeutic strategies Informed Consent: understands Reason for contiued partial hosp. stay Substantial Risk for: rapid decompensation Certification I certify that partial hospital treatment is medically necessary due to the symptoms and problems resulting from the patient's mental illness and the failure to treat the patient at the partial hospital level of care would likely result in the patient requiring inpatient psychiatric care which could not be prevented at a less intensive level of care. Total time managing care of this patient today ___20_ minutes. Discharge Plan Discharge Attending provider: Raj Michaud Medications: New oxcarbazepine [Trileptal] 600 mg tablet 1,200 mg PO BEDTIME Qty: 60 0RF Rx Instructions: Take 2 tabs at bedtime Discontinued quetiapine 50 mg Tablet 50 mg PO BEDTIME Qty: 30 0RF quetiapine [Seroquel] 25 mg tablet 25 mg PO BEDTIME Qty: 30 0RF Rx Instructions: 75 mg bedtime oxcarbazepine [Trileptal] 600 mg tablet 600 mg PO BID Qty: 60 0RF No Action quetiapine 50 mg tablet extended release 24 hr 100 mg PO .bedtime Qty: 30 0RF Stand Alone Forms: Patient Portal Discharge page Patient Education: Depression (DC)
--- NOTE | 2022-09-22 15:50 | HO.PHP ---
I faxed a referral to Ed Oswaldo at [facility] day treatment.
--- NOTE | 2022-09-22 15:51 | HO.PHP ---
I spoke with the clients therapist Nora Chacon about the client need for an appointment and need to have an appointment with the prescriber Salima Sahni NP. Nora will see Shalom on Tuesday and will contact Salima Sahni for an appointment time.
== END 2022-09-24 23:59 | disposition home or self-care (01) ==
LOC: HO.PHPA 13:00
PROVIDERS: Visit Provider Psychiatry & Neurology Psychiatry
DX: F32.A Depression, unspecified (principal); F43.10 Post-traumatic stress disorder, unspecified; Z79.899 Other long term (current) drug therapy
CPT/HCPCS: 90791; 90853